=== PATIENT | female | born 1985 | race African-American/Black ===

== ENCOUNTER → 2021-08-04 07:11 | Outpatient (CLI) | payer OTHER, SELFPAY ==
--- NOTE | 2021-08-04 07:38 | DI.US.S_ITS ---
PROCEDURE: US OB <= 14 WEEKS FETUS INDICATIONS: INITIAL VIABILITY AND DATING OUTSIDE/PRIOR DATING DATA: Last menstrual period (LMP): 06/05/2022 LMP-based estimated date of delivery (JOSEPH): 03/12/2022. First dating scan (date and location): 08/04/2021. Estimated date of delivery (JOSEPH) from first dating scan: 03/07/2022. TECHNIQUE: Real-time scanning was performed of the fetus and maternal pelvic organs, with image documentation. Endovaginal scanning was also performed to better visualize the fetus and maternal ovaries. COMPARISON: None. FINDINGS: Embryo: 2.53 cm crown-rump length corresponds with a 9 week 2 day gestation. No perigestational bleed present. Heart rate: 168 beats per minute Maternal organs: Neither ovary visualized. No free fluid or adnexal mass. IMPRESSION: Single live intrauterine consistent with a 9 week 2 day gestation We strive to produce accurate, complete, and clear reports of imaging services. To assist us in improving patient care, this report was composed using standard report templates and voice recognition software. Therefore, it may contain abnormal punctuation, insertions and/or omissions. Occasional wrong-word or sound-alike substitutions may occur. Though we review the report and make efforts to correct it, we do recommend that the report be read carefully in proper context to recognize any text inaccuracies. Approved by: Myke Grant M.D. on 08/04/2021 at 16:25
== END ==
PROVIDERS: Referring Provider Obstetrics & Gynecology; Visit Provider Obstetrics & Gynecology
DX: Z36.87 Encounter for antenatal screening for uncertain dates (principal); Z3A.09 9 weeks gestation of pregnancy
CPT/HCPCS: 76801; 76817

== ENCOUNTER → 2021-08-11 08:37 | Outpatient (CLI) | payer OTHER, SELFPAY ==
[2021-08-11 12:55] LABS: Appearance Urine UA CLEAR; Bilirubin Urine UA NEGATIVE (NEGATIVE); Color Urine UA YELLOW; Glucose Urine UA NEGATIVE (Negative); Ketones Urine UA NEGATIVE (NEGATIVE); Leukocyte Esterase Urine UA NEGATIVE (NEGATIVE); Nitrite Urine UA NEGATIVE (Negative); Occult Blood Urine UA NEGATIVE (Negative); Protein Urine UA TRACE (Negative); Specific Gravity Urine UA 1.015 (1.000-1.035); Urobilinogen Urine UA 0.2 E.U./dL (0.2)
[2021-08-11 12:58] LABS: pH Urine UA 6.5 (4.5-8.0)
[2021-08-11 14:20] LABS: Urine N gonorrhoeae NOT DETECTED
[2021-08-11 14:21] LABS: Urine Chlamydia NOT DETECTED
== END ==
PROVIDERS: Visit Provider Obstetrics & Gynecology
DX: Z34.81 Encounter for supervision of other normal pregnancy, first trimester (principal); Z3A.09 9 weeks gestation of pregnancy
CPT/HCPCS: 81003; 87086; 87491; 87591

== ENCOUNTER 2021-08-13 20:51 | Emergency (ER) | payer OTHER, SELFPAY ==
[2021-08-13 21:29] VITALS: BP 119/53; PULSE 81; RESP 17; TEMP 36.7; O2SAT 100; BMI 27.4
--- NOTE | 2021-08-13 22:08 | DI.US.S_ITS ---
PROCEDURE: US OB <= 14 WEEKS FETUS INDICATIONS: 11 WEEKS, SPOTTING, OUTSIDE/PRIOR DATING DATA: Last menstrual period (LMP): 06/05/2022. LMP-based estimated date of delivery (JOSEPH): 03/12/2022. First dating scan (date and location): 08/04/2021. Estimated date of delivery (JOSEPH) from first dating scan: 03/07/2022. The calculations are made using the ultrasound JOSEPH of 03/07/2022. TECHNIQUE: Real-time scanning was performed of the fetus and maternal pelvic organs, with image documentation. Endovaginal scanning was also performed to better visualize the fetus and maternal ovaries. COMPARISON: [facility], , OB <= 14 WEEKS FETUS, 08/04/2021, 7:39. FINDINGS: Embryo: Living 1st trimester intrauterine . [place]-rump length measures 4.1 cm, 11 weeks 0 days Heart rate: 180 beats per minute Maternal organs: Right ovary not seen. Left ovary surgically absent. IMPRESSION: Living 1st trimester intrauterine . [place]-rump length and heartbeat. No sonographic evidence of complications. We strive to produce accurate, complete, and clear reports of imaging services. To assist us in improving patient care, this report was composed using standard report templates and voice recognition software. Therefore, it may contain abnormal punctuation, insertions and/or omissions. Occasional wrong-word or sound-alike substitutions may occur. Though we review the report and make efforts to correct it, we do recommend that the report be read carefully in proper context to recognize any text inaccuracies. Dictated by: Jamar Jarquin M.D. on 08/13/2021 at 23:10 Approved by: Jamar Jarquin M.D. on 08/13/2021 at 23:13
[2021-08-13 23:01] LABS: Add Manual Diff / Slide Review NO; Basophils Absolute Auto 0 /uL (0-100); Basophils Percent Auto 0.3 % (0-2); Eosinophils Absolute Auto 0 /uL (0-450); Eosinophils Percent Auto 0.9 % (2-4); Hematocrit 34.3 % (36-46); Hemoglobin 11.4 g/dL (12.0-16.0); Lymphocytes Absolute Auto 1800 /uL (1100-4500); Lymphocytes Percent Auto 34.8 % (25-40); Mean Corpuscular HGB Conc 33.3 % (30-36); Mean Corpuscular Hemoglobin 25.9 PG (26-34); Mean Corpuscular Volume 77.8 fL (80-100); Monocytes Absolute Auto 400 /uL (0-900); Monocytes Percent Auto 7.7 % (3-14); Neutrophils Absolute Auto 2900 /uL (1500-7000); Neutrophils Percent Auto 56.3 % (50-75); Platelet Count 235 X10^3/uL (150-400); Red Blood Cell Count 4.41 X10^6/uL (4.0-5.2); Red Cell Distribution Width 13.5 % (11.6-14.8); White Blood Cell Count 5.1 X10^3/uL (4.5-11.0)
[2021-08-13 23:07] LABS: Alanine Aminotransferase 11 IU/L (<35); Albumin 3.9 g/dL (3.5-5.0); Albumin Globulin Ratio 1.2 (1.0-2.8); Alkaline Phosphatase 29 U/L (38-126); Aspartate Aminotransferase 22 IU/L (14-36); BUN Creatinine Ratio 27.9 (6-22); Bilirubin Total 0.2 mg/dL (0.2-1.3); Blood Urea Nitrogen 12 mg/dL (7-17); Calcium 9.6 mg/dL (8.4-10.2); Carbon Dioxide 24 mmol/L (22-32); Chloride 106 mmol/L (98-107); Estimated Glomerular Filt Rate > 60.0 mL/min (>60); Globulin 3.3 g/dL (1.7-4.1); Glucose 97 mg/dL (70-100); HEMOLYSIS < 15 (0-50); Potassium 3.7 mmol/L (3.4-5.1); Sodium 133 mmol/L (137-145); Total Protein 7.2 g/dL (6.3-8.2)
[2021-08-13 23:24] LABS: HCG Quantitative /Beta subunit 152090 mIU/mL
[2021-08-13 23:31] VITALS: BP 104/57; PULSE 80; RESP 18; O2SAT 99
--- NOTE | 2021-08-14 00:37 | ED_ITS ---
HPI - General Chief complaint: Vaginal Bleeding Stated complaint: 10 WEEKS PREG./BLEEDING Time Seen by Provider: 08/14/21 00:28 Source: patient Mode of arrival: Ambulatory History of Present Illness HPI Narrative: Patient is a 36-year-old female who is presenting today at 11 weeks with some vaginal bleeding. She has previously had an ectopic and dermoid . Tonight she noticed bright red will wiping. No abdominal cramping. She has not really had any more bleeding. No pain no nausea or vomiting no f erick. Followed by Dr. Carlson. Related Data Home Medications Medication Instructions Recorded Confirmed doxylamine succinate 25 mg tablet 25 mg PO BEDTIME PRN 08/05/21 08/05/21 (Unisom (doxylamine)) prenat.vits,shahla,[id number]-kpar-[id number] 1 tab PO DAILY 08/05/21 08/05/21 pyridoxine (vitamin B6) 100 mg 50 mg PO DAILY 08/05/21 08/05/21 tablet Allergies Allergy/AdvReac Type Severity Reaction Status Date / Time iodine Allergy Mild Rash Verified 08/13/21 21:33 Latex, Natural Rubber Allergy Mild Rash Verified 08/13/21 21:33 Review of Systems Review of Systems Narrative: GENERAL: Denies chills, fatigue, malaise, fever, sweats, travel HEENT: Denies sinus pain, ear pain, sore throat, difficulty swallowing, neck pain RESPIRATORY: Denies dyspnea, cough, wheezing, hemoptysis, sputum. CARDIOVASCULAR: Denies chest pain, palpitations, orthopnea, edema GASTROINTESTINAL: Denies nausea, vomiting, abdominal pain, diarrhea, constipation, melena. 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 MUSCULOSKELETAL: Denies weakness, joint pain, or bony pain SKIN: No rash, no erythema, no pruritus NEUROLOGIC: Denies weakness, dizziness, headache, numbness, change in speech, confusion PSYCHIATRIC: No concerning psychosocial issues. 12 point review of systems is negative except for those stated above and HPI Exam Initial Vital Signs Initial Vital Signs: Vital Signs Temperature 98.1 F 08/13/21 21:29 Pulse Rate 81 08/13/21 21:29 Respiratory Rate 17 08/13/21 21:29 Blood Pressure 119/53 L 08/13/21 21:29 Pulse Oximetry 100 08/13/21 21:29 GENERAL: Alert well-appearing 36-year-old female in no acute] distress. HEENT: Head atraumatic,EOMI, pupils reactive, face symmetric, [moist] mucous membranes CARDIOVASCULAR: Regular rate and rhythm without murmurs, rubs or gallops. RESPIRATORY: Breath sounds equal bilaterally, no wheezes rales or rhonchi. ABDOMEN: Soft, nontender. Normoactive bowel sounds all 4 quadrants. No guarding or rebound. EXTREMITIES: Normal range of motion, no clubbing or edema. Neurovascularly intact NEUROLOGICAL: Alert and oriented x4. SKIN: Warm, dry, no laceration, no petechiae, no rashes or lesions. Course Orders Ordered: ED Orders 08/13/21 22:08 US OB <= 14 weeks fetus Stat 08/13/21 22:15 ABO RH Type Stat Complete Blood Count AUTO DIFF Stat Comprehensive Metabolic Panel Stat HCG Quantitative /Beta subunit Stat Vital Signs Vital signs: Vital Signs - 8 hr 08/13/21 21:29 08/13/21 23:31 08/14/21 00:52 Temperature 98.1 F Pulse Rate 81 80 71 Respiratory Rate 17 18 17 Blood Pressure 119/53 L 104/57 L 97/54 L Pulse Oximetry 100 99 99 MDM - OB/Uterine Contractions Lab Data Result diagrams: 08/13/21 22:15 08/13/21 22:15 Labs: Lab Results 08/13/21 08/13/21 08/13/21 Range/Units 22:15 22:15 22:15 WBC 5.1 (4.5-11.0) X10^3/uL RBC 4.41 (4.0-5.2) X10^6/uL Hgb 11.4 L (12.0-16.0) g/dL Hct 34.3 L (36-46) % MCV 77.8 L (80-100) fL MCH 25.9 L (26-34) PG MCHC 33.3 (30-36) % RDW 13.5 (11.6-14.8) % Plt Count 235 (150-400) X10^3/uL Neut % (Auto) 56.3 (50-75) % Lymph % (Auto) 34.8 (25-40) % [place] % (Auto) 7.7 (3-14) % Eos % (Auto) 0.9 L (2-4) % Baso % (Auto) 0.3 (0-2) % Neut # (Auto) 2900 (6282-4013) /uL Lymph # (Auto) 1800 (0556-8306) /uL [place] # (Auto) 400 (0-900) /uL Eos # (Auto) 0 (0-450) /uL Baso # (Auto) 0 (0-100) /uL Sodium 133 L (137-145) mmol/L Potassium 3.7 (3.4-5.1) mmol/L Chloride 106 (98-107) mmol/L Carbon Dioxide 24 (22-32) mmol/L BUN 12 (7-17) mg/dL Creatinine 0.43 L (0.52-1.04) mg/dL Estimated GFR > 60.0 (>60) mL/min BUN/Creatinine Ratio 27.9 H (6-22) Glucose 97 (70-100) mg/dL Calcium 9.6 (8.4-10.2) mg/dL Total Bilirubin 0.2 (0.2-1.3) mg/dL AST 22 (14-36) IU/L ALT 11 (<35) IU/L Alkaline Phosphatase 29 L (38-126) U/L Total Protein 7.2 (6.3-8.2) g/dL Albumin 3.9 (3.5-5.0) g/dL Globulin 3.3 (1.7-4.1) g/dL Albumin/Globulin Ratio 1.2 (1.0-2.8) HCG, Quant 912143 mIU/mL Blood Type A Positive Urine Dip Bedside Urine Glucose Negative Bedside Urine Bilirubin - Negative Bedside Urine Ketone - Negative Urine Specific [place] 1.025 Bedside Urine Occult Blood +++ Bedside Urine pH 6.0 Bedside Urine Protein - Negative Bedside Urine Urobilinogen - Negative Bedside Urine Nitrite - Negative Bedside Urine Leukocytes - Negative Esterase Imaging Data US - OB: Radiologist's Impression: PROCEDURE:? US OB <= 14 WEEKS FETUS ? INDICATIONS:? 11 WEEKS, SPOTTING, ? OUTSIDE/PRIOR DATING DATA:? Last menstrual period (LMP):? 06/05/2022.? LMP-based estimated date of delivery (JOSEPH):? 03/12/2022.? First dating scan (date and location):? 08/04/2021.? Estimated date of delivery (JOSEPH) from first dating scan:? 03/07/2022. The calculations are made using the ultrasound JOSEPH of 03/07/2022. ? TECHNIQUE:? Real-time scanning was performed of the fetus and maternal pelvic organs, with image documentation.? Endovaginal scanning was also performed to better visualize the fetus and maternal ovaries.? ? COMPARISON:? [facility], , OB <= 14 WEEKS FETUS, 08/04/2021, 7:39. ? FINDINGS:? ? Embryo:? Living 1st trimester intrauterine .? [place]-rump length measures 4.1 cm, 11 weeks 0 days Heart rate:? 180 beats per minute ? Maternal organs:? Right ovary not seen.? Left ovary surgically absent. ? ? IMPRESSION:? Living 1st trimester intrauterine .? [place]-rump length and heartbeat.? No sonographic evidence of complications. ? We strive to produce accurate, complete, and clear reports of imaging services. To assist us in improving patient care, this report was composed using standard report templates and voice recognition software. Therefore, it may contain abnormal punctuation, insertions and/or omissions. Occasional wrong-word or sound-alike substitutions may occur. Though we review the report and make efforts to correct it, we do recommend that the report be read carefully in proper context to recognize any text inaccuracies. ? Dictated by: Jamar Jarquin M.D. on 08/13/2021 at 23:10 ? ? Approved by: Jamar Jarquin M.D. on 08/13/2021 at 23:13 ? MDM Narrative Medical decision making narrative: Patient has had no further bleeding episodes ultrasound blood work were overall reassuring. No evidence bladder infection. She will follow up with OB as scheduled. Discharge Plan Departure Patient Disposition: Home Clinical Impression: Vaginal bleeding during Instructions: DI for Vaginal Bleeding During Activity Restrictions/Additional Instructions: *You have been diagnosed with vaginal bleeding with *What to do: At this time please follow up with OB. Pelvic rest, nothing in or out of vagina. Bleeding should stop can be normal but there is always risk of miscarriage *Continue to take medications as directed *Follow up with your primary care provider in 2-3 days or call [phone] *Return to ER if you should have increased bleeding, cramping bleeding more than 2 pads in 1 hour or any new, worsening or concerning symptoms Prescriptions: No Action prenat.vits,shahla,[id number] Tablet 1 tab PO DAILY 0RF Unisom (doxylamine) 25 mg tablet 25 mg PO BEDTIME PRN (Reason: Nausea) 0RF pyridoxine (vitamin B6) 100 mg tablet 50 mg PO DAILY 0RF Referrals: Miscellaneous,Doctor, [Primary Care Provider] - Britton Carlson MD [Physician] -
[2021-08-14 00:52] VITALS: BP 97/54; PULSE 71; RESP 17; O2SAT 99
== END 2021-08-14 00:54 | disposition home or self-care (01) ==
PROVIDERS: Emergency Provider Emergency Medicine
DX: O20.9 Hemorrhage in early pregnancy, unspecified (principal); Z87.59 Personal history of other complications of pregnancy, childbirth and the puerperium; Z3A.11 11 weeks gestation of pregnancy
CPT/HCPCS: 36415; 76801; 76817; 80053; 81003; 84702; 85025; 86900; 86901; 99284

== ENCOUNTER 2021-08-15 10:11 | Emergency (ER) | payer OTHER, SELFPAY ==
[2021-08-15 10:19] VITALS: BP 129/71; PULSE 91; RESP 18; TEMP 36.7; O2SAT 99
--- NOTE | 2021-08-15 10:22 | DI.US.S_ITS ---
PROCEDURE: US OB <= 14 WEEKS FETUS INDICATIONS: BLEEDING OUTSIDE/PRIOR DATING DATA: Last menstrual period (LMP): 06/05/2022. LMP-based estimated date of delivery (JOSEPH): 03/12/2022. First dating scan (date and location): 06/03/2022. Estimated date of delivery (JOSEPH) from first dating scan: 03/07/2022. TECHNIQUE: Real-time scanning was performed of the fetus and maternal pelvic organs, with image documentation. Endovaginal scanning was also performed to better visualize the fetus and maternal ovaries. COMPARISON: [facility], OB <= 14 WEEKS FETUS, 08/13/2021, 22:32. FINDINGS: Embryo: Single live intrauterine is identified with crown-rump length measuring 4.4 cm corresponding to 11 weeks 1 day. Gestational age from initial ultrasound is 10 weeks 6 days. Subchorionic hemorrhage was identified on prior exam and is slightly increased in size currently measuring 3.2 x 1.3 x 2.9 cm compared to 2.7 x 0.9 by 2.6 cm. Heart rate: 175 beats per minute. Maternal organs: Ovaries are not visualized. Previously noted uterine fibroid is seen in partial view. IMPRESSION: Single live intrauterine as above. Subchorionic hemorrhage slightly increased compared to prior exam. We strive to produce accurate, complete, and clear reports of imaging services. To assist us in improving patient care, this report was composed using standard report templates and voice recognition software. Therefore, it may contain abnormal punctuation, insertions and/or omissions. Occasional wrong-word or sound-alike substitutions may occur. Though we review the report and make efforts to correct it, we do recommend that the report be read carefully in proper context to recognize any text inaccuracies. Dictated by: Arlette Caba M.D. on 08/15/2021 at 12:18 Approved by: Arlette Caba M.D. on 08/15/2021 at 12:20
--- NOTE | 2021-08-15 11:27 | ED_ITS ---
HPI - Female Genitourinary General Chief complaint: Vaginal Bleeding Stated complaint: Light bleeding- 11 wks Time Seen by Provider: 08/15/21 10:25 Source: patient Mode of arrival: Ambulatory Limitations: no limitations History of Present Illness HPI Narrative: This is a 36-year-old female comes emergency department who was seen on the 13 of August. Patient is approximately 11 weeks by dates. She is AG 5 P 1 with prior dermoid cyst and not quite ectopic but a in the corner of her uterus which had to be removed. She has had a prior and then removal of the 1 through her scar and then laparoscopic for the dermoid. 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 She states she has a history of interstitial cystitis but has not been taking the medications for this. She returns today with some increased bleeding she needs initially with spotting, she had a little bit more a large clot and noticed her nausea which she has had throughout her had resolved today. She has not had fevers. No abdominal pain or cramping. She states still a light amount of blood occasionally bright red but often dark in coloration. She had significant flatus but has not had any diarrhea constipation. She is supposed to be seen on Tuesday with her OBGYN. She denies other surgeries or medical issues. Related Data Home Medications Medication Instructions Recorded Confirmed doxylamine succinate 25 mg tablet 25 mg PO BEDTIME PRN 08/05/21 08/05/21 (Unisom (doxylamine)) prenat.vits,shahla,[id number]-jras-[id number] 1 tab PO DAILY 08/05/21 08/05/21 pyridoxine (vitamin B6) 100 mg 50 mg PO DAILY 08/05/21 08/05/21 tablet Allergies Allergy/AdvReac Type Severity Reaction Status Date / Time iodine Allergy Mild Rash Verified 08/15/21 10:20 Latex, Natural Rubber Allergy Mild Rash Verified 08/15/21 10:20 Review of Systems Review of Systems ROS Unobtainable: All systems reviewed & are unremarkable except as noted in HPI and below Patient History Medical History Dermoid cyst Ectopic Interstitial cystitis Migraines Surgical History H/O laparoscopy History of Family History Father Hypertension Grandmother Breast cancer alcohol intake frequency: other Last Alcoholic Drink: none Substance Use Type: does not use Exam Narrative Exam Narrative: GENERAL: Alert and oriented x three, female in mild distress. HEENT: Head normocephalic, atraumatic, EOMI, pupils reactive, face symmetric, moist mucous membranes NECK: Supple, full range of motion CARDIOVASCULAR: Regular rate and rhythm without murmurs, rubs or gallops. RESPIRATORY: Breath sounds equal bilaterally, no wheezes rales or rhonchi. ABDOMEN: Soft, nontender. Gravid, appropriate for dates. Normoactive bowel sounds all 4 quadrants. No guarding or rebound, rigidity, no mass : No CVA tenderness EXTREMITIES: Normal range of motion, no clubbing or edema. Neurovascularly intact NEUROLOGICAL: Cranial nerves II through XII grossly intact. Moving all extremities SKIN: Warm, dry, no petechiae, no rashes or lesions. Initial Vital Signs Initial Vital Signs: Vital Signs Temperature 98.0 F 08/15/21 10:19 Pulse Rate 91 H 08/15/21 10:19 Respiratory Rate 18 08/15/21 10:19 Blood Pressure 129/71 08/15/21 10:19 Pulse Oximetry 99 08/15/21 10:19 Course Orders Ordered: ED Orders 08/15/21 10:22 US OB <= 14 weeks fetus Stat 08/15/21 12:20 Urine Microscopic Stat Vital Signs Vital signs: Vital Signs - 8 hr 08/15/21 10:19 08/15/21 12:44 Temperature 98.0 F Pulse Rate 91 H 81 Respiratory Rate 18 16 Blood Pressure 129/71 111/57 L Pulse Oximetry 99 100 MDM - Female Genitourinary Lab Data Labs: Lab Results 08/15/21 Range/Units 12:20 Urine RBC 5-10/hpf H (0-5/HPF) Urine WBC 0-1/hpf (0-5/HPF) Ur Squamous Epith Cells 5-10 /hpf H (0-5/HPF) Urine Bacteria Few (2-10) H (None) Ur Culture Indicated? Cult not indicated Urine Dip Bedside Urine Glucose Negative Bedside Urine Bilirubin - Negative Bedside Urine Ketone - Negative Urine Specific [place] 1.020 Bedside Urine Occult Blood +++ Bedside Urine pH 6.0 Bedside Urine Protein - Negative Bedside Urine Urobilinogen +/- 1mg Bedside Urine Nitrite - Negative Bedside Urine Leukocytes - Negative Esterase Imaging Data 08/13/21 ob us: Radiologist's Impression: [address] [address] Ultrasound Report Signed Patient: Guerita Piper MR#: [id number] : 1985 Acct:[id number] Age/Sex: 36 / F Date of Service: 08/13/21 Loc: ED Accession Number: [id number] ?? Procedure: US OB <= 14 weeks fetus Ordering Provider: Kaylyn Collins D.O. PROCEDURE:? US OB <= 14 WEEKS FETUS ? INDICATIONS:? 11 WEEKS, SPOTTING, ? OUTSIDE/PRIOR DATING DATA:? Last menstrual period (LMP):? 06/05/2022.? LMP-based estimated date of delivery (JOSEPH):? 03/12/2022.? First dating scan (date and location):? 08/04/2021.? Estimated date of delivery (JOSEPH) from first dating scan:? 03/07/2022. The calculations are made using the ultrasound JOSEPH of 03/07/2022. ? TECHNIQUE:? Real-time scanning was performed of the fetus and maternal pelvic organs, with image documentation.? Endovaginal scanning was also performed to better visualize the fetus and maternal ovaries.? ? COMPARISON:? [facility], , OB <= 14 WEEKS FETUS, 08/04/2021, 7:39. ? FINDINGS:? ? Embryo:? Living 1st trimester intrauterine .? [place]-rump length measures 4.1 cm, 11 weeks 0 days Heart rate:? 180 beats per minute ? Maternal organs:? Right ovary not seen.? Left ovary surgically absent. ? ? IMPRESSION:? Living 1st trimester intrauterine .? [place]-rump length and heartbeat.? No sonographic evidence of complications. ? We strive to produce accurate, complete, and clear reports of imaging services. To assist us in improving patient care, this report was composed using standard report templates and voice recognition software. Therefore, it may contain abnormal punctuation, insertions and/or omissions. Occasional wrong-word or sound-alike substitutions may occur. Though we review the report and make efforts to correct it, we do recommend that the report be read carefully in proper context to recognize any text inacc uracies. ? Dictated by: Jamar Jarquin M.D. on 08/13/2021 at 23:10 ? ? Approved by: Jamar Jarquin M.D. on 08/13/2021 at 23:13?? US - OB: Radiologist's Impression: [address] [address] Ultrasound Report Signed Patient: Guerita Piper MR#: [id number] : 1985 Acct:[id number] Age/Sex: 36 / F Date of Service: 08/15/21 Loc: ED Accession Number: [id number] ?? Procedure: US OB <= 14 weeks fetus Ordering Provider: Noemi Escalera D.O. PROCEDURE:? US OB <= 14 WEEKS FETUS ? INDICATIONS:? BLEEDING ? OUTSIDE/PRIOR DATING DATA:? Last menstrual period (LMP):? 06/05/2022.? LMP-based estimated date of delivery (JOSEPH):? 03/12/2022.? First dating scan (date and location):? 06/03/2022.? Estimated date of delivery (JOSEPH) from first dating scan:? 03/07/2022. ? TECHNIQUE:? Real-time scanning was performed of the fetus and maternal pelvic organs, with image documentation.? Endovaginal scanning was also performed to better visualize the fetus and maternal ovaries.? ? COMPARISON:? [facility], OB <= 14 WEEKS FETUS, 08/13/2021, 22:32. ? FINDINGS:? ? Embryo:? Single live intrauterine is identified with crown-rump length measuring 4.4 cm corresponding to 11 weeks 1 day.? Gestational age from initial ultrasound is 10 weeks 6 days.? Subchorionic hemorrhage was identified on prior exam and is slightly increased in size currently measuring 3.2 x 1.3 x 2.9 cm compared to 2.7 x 0.9 by 2.6 cm.? ? Heart rate:? 175 beats per minute. ? Maternal organs:? Ovaries are not visualized. ? Previously noted uterine fibroid is seen in partial view. ? ? IMPRESSION:? ? Single live intrauterine as above. ? Subchorionic hemorrhage slightly increased compared to prior exam. ? We strive to produce accurate, complete, and clear reports of imaging services. To assist us in improving patient care, this report was composed using standard report templates and voice recognition software. Therefore, it may contain abnormal punctuation, insertions and/or omissions. Occasional wrong-word or sound-alike substitutions may occur. Though we review the report and make efforts to correct it, we do recommend that the report be read carefully in proper context to recognize any text inaccuracies. ? Dictated by: Arlette Caba M.D. on 08/15/2021 at 12:18 ? ? Approved by: Arlette Caba M.D. on 08/15/2021 at 12:20?? MDM Narrative Medical decision making narrative: This is a 36-year-old who comes in with vaginal bleeding during she is a with 2 prior miscarriages and 2 prior pregnancies that word dermoid cyst as well as a also ectopic with the was in the corner of her uterus. Patient has had some vaginal bleeding but no pain. She had ultrasound on the 13 of August. Showing a living 1st trimester any urine measuring 11 weeks and 0 days with a heart rate of 180 beats per minute. No other significant changes were appreciated that time. Patient is A+ not requiring RhoGAM. Labs were not repeated today but point of care urine was to evaluate for infection. A subchorionic hemorrhage slightly increased in size from prior 2 days ago is noted on ultrasound. Patient updated and expressed understanding she has follow up this Tuesday with electrolysis investigator. Discharge Plan Departure Patient Disposition: Home Clinical Impression: Vaginal bleeding during , Advanced maternal age during Instructions: DI for Vaginal Bleeding During Activity Restrictions/Additional Instructions: Follow-up Tuesday with your OBGYN. A subchorionic hemorrhage is noted on your ultrasound it was seen on your last ultrasound and has increased slightly in size. Heart rate and size corresponds with your recent ultrasound as well. Continue with pelvic rest at this time until cleared by your physician. Please return for fevers, new or worsening abdominal pain, lightheadedness or passing out new chest pain or shortness of breath, going through more than 1 pad an hour or other new or concerning symptoms. Prescriptions: No Action prenat.vits,shahla,[id number] Tablet 1 tab PO DAILY 0RF Unisom (doxylamine) 25 mg tablet 25 mg PO BEDTIME PRN (Reason: Nausea) 0RF pyridoxine (vitamin B6) 100 mg tablet 50 mg PO DAILY 0RF Referrals: Britton Carlson MD [Primary Care Provider] -
[2021-08-15 12:44] VITALS: BP 111/57; PULSE 81; RESP 16; O2SAT 100
[2021-08-15 13:27] LABS: Bacteria Urine Few (2-10); Culture Indicated Urine Cult Not Indicated; RBC Urine 5-10/HPF (0-5/HPF); Squamous Epithelial Cell Urine 5-10 /HPF (0-5/HPF); WBC Urine 0-1/HPF (0-5/HPF)
== END 2021-08-15 12:45 | disposition home or self-care (01) ==
PROVIDERS: Emergency Provider Emergency Medicine; PCP Obstetrics & Gynecology
DX: O20.9 Hemorrhage in early pregnancy, unspecified (principal); O09.521 Supervision of elderly multigravida, first trimester; Z3A.11 11 weeks gestation of pregnancy
CPT/HCPCS: 76801; 81003; 81015; 99283

== ENCOUNTER → 2021-08-18 08:04 | Outpatient (CLI) | payer OTHER, SELFPAY ==
[2021-08-18 09:09] LABS: Specimen Label Y
[2021-08-18 10:45] LABS: Add Manual Diff / Slide Review NO; Basophils Absolute Auto 0 /uL (0-100); Basophils Percent Auto 0.2 % (0-2); Eosinophils Absolute Auto 0 /uL (0-450); Eosinophils Percent Auto 0.6 % (2-4); Hemoglobin 12.2 g/dL (12.0-16.0); Lymphocytes Absolute Auto 1200 /uL (1100-4500); Lymphocytes Percent Auto 23.1 % (25-40); Mean Corpuscular HGB Conc 33.9 % (30-36); Mean Corpuscular Hemoglobin 26.3 PG (26-34); Mean Corpuscular Volume 77.6 fL (80-100); Monocytes Absolute Auto 300 /uL (0-900); Monocytes Percent Auto 6.7 % (3-14); Neutrophils Absolute Auto 3400 /uL (1500-7000); Neutrophils Percent Auto 69.4 % (50-75); Platelet Count 259 X10^3/uL (150-400); Red Blood Cell Count 4.64 X10^6/uL (4.0-5.2)
[2021-08-18 12:14] LABS: Rubella Antibody IgG 24.1 IU/mL (>15)
[2021-08-18 12:15] LABS: Hepatitis B Surface Antigen NEGATIVE s/c (NEGATIVE)
[2021-08-18 12:57] LABS: HIV 1 & 2 Ab/Ag 4th Gen Combo NEGATIVE (NEGATIVE); Hep C Virus Ab w/Reflex Quant NEGATIVE s/c (NEGATIVE)
[2021-08-19 08:02] LABS: RPR Screen Non Reactive (Non Reactive)
[2021-08-19 08:09] LABS: Varicella IgG Antibody 643 index (Immune >165)
== END ==
PROVIDERS: Referring Provider Obstetrics & Gynecology; Visit Provider Obstetrics & Gynecology
DX: O26.21 Pregnancy care for patient with recurrent pregnancy loss, first trimester (principal)
CPT/HCPCS: 36415; 80055; 86787; 86803; 86850; 86900; 86901; 87389

== ENCOUNTER → 2021-10-26 07:39 | Outpatient (CLI) | payer OTHER, SELFPAY ==
--- NOTE | 2021-10-26 07:40 | DI.US.S_ITS ---
PROCEDURE: US OB >= 14 WEEKS FETUS INDICATIONS: ANATOMY SCAN OUTSIDE/PRIOR DATING DATA: Last menstrual period (LMP): 06/05/2021 LMP-based estimated date of delivery (JOSEPH): 03/12/2022 First dating scan (date and location): 08/04/2021 Estimated date of delivery (JOSEPH) from first dating scan: 03/07/2022 The calculations are made using the ultrasound JOSEPH of 03/07/2022 TECHNIQUE: Real-time scanning was performed of the fetus, with image documentation and biometric measurements. Endovaginal scanning: Not performed. COMPARISON: [facility] Ultrasound, US, US OB > 14 WEEKS FOLLOW UP, 09/11/2021, 9:45. FINDINGS: General: A single living intrauterine gestation is present. Presentation: Variable Placenta: Placental position is anterior fundal, without previa. Amniotic fluid index: 15.1 cm, normal range is 5-24 cm. Single deepest vertical pocket is 4.7 cm. heart rate: 150 beats per minute. Maternal cervical canal: 5.0 cm long. Normal lower limit is 2.5 cm. Status post left oophorectomy. 5.9 x 5.5 x 4.1 cm fibroid seen at the lower uterine segment anteriorly. biometrics: Biparietal diameter: 5.2 cm, 21 weeks 5 days Head circumference: 19.4 cm, 21 weeks 5 days Abdominal circumference: 18.2 cm, 23 weeks 1 day Femur length: 3.8 cm, 22 weeks 2 days Clinically estimated gestational age: 21 weeks 1 day Composite gestational age from present scan: 22 weeks 2 days Estimated weight and percentile: 517 grams, 98th percentile Anatomic survey: Neuro: Ventricles are non-dilated at less than 10 mm. Cisterna magna is normal at 3-11 mm. Cerebellum is normal in size and morphology. Nuchal skin fold: Normal at less than 6 mm between 14-21 weeks gestational age. Face: Nose and lips, facial profile are normal. Spine: No evidence for spina bifida. Heart: 4-chambered heart is present, with normal ventricular outflow tracts. Diaphragm: Diaphragm is intact. Stomach: Left-sided stomach is present. Kidneys: No hydronephrosis. Normal is less than 5 mm in 2nd trimester, less than 7 mm in 3rd trimester. Cord: 3-vessel cord has orthotopic insertion. Bladder: Normal in size. Extremities: All 4 extremities identified. IMPRESSION: 1. Single live intrauterine with interval growth. 2. Estimated weight is 517 grams, 98th percentile for gestational age. Recommend attention on follow-up exams 3. anatomic survey is within normal limits. We strive to produce accurate, complete, and clear reports of imaging services. To assist us in improving patient care, this report was composed using standard report templates and voice recognition software. Therefore, it may contain abnormal punctuation, insertions and/or omissions. Occasional wrong-word or sound-alike substitutions may occur. Though we review the report and make efforts to correct it, we do recommend that the report be read carefully in proper context to recognize any text inaccuracies. Dictated by: Nicholas Oliva M.D. on 10/26/2021 at 14:57 Approved by: Nicholas Oliva M.D. on 10/26/2021 at 15:06
== END ==
PROVIDERS: Referring Provider Obstetrics & Gynecology; Visit Provider Obstetrics & Gynecology
DX: Z36.89 Encounter for other specified antenatal screening (principal); Z3A.22 22 weeks gestation of pregnancy
CPT/HCPCS: 76811

== ENCOUNTER → 2021-12-10 10:19 | Outpatient (CLI) | payer OTHER, SELFPAY ==
[2021-12-10 12:46] LABS: Hematocrit 31.5 % (36-46); Hemoglobin 10.5 g/dL (12.0-16.0)
[2021-12-10 13:33] LABS: GTT (PREG) 1 Hour PP 50gm Dose 107 mg/dL (76-139)
== END ==
PROVIDERS: Referring Provider Obstetrics & Gynecology; Visit Provider Obstetrics & Gynecology
DX: Z34.82 Encounter for supervision of other normal pregnancy, second trimester (principal); Z3A.26 26 weeks gestation of pregnancy
CPT/HCPCS: 36415; 82950; 85014; 85018

== ENCOUNTER 2021-12-18 06:36 | Observation (INO) | payer OTHER, SELFPAY ==
[2021-12-18 08:27] LABS: Appearance Urine UA CLEAR; Bilirubin Urine UA NEGATIVE (NEGATIVE); Color Urine UA YELLOW; Glucose Urine UA NEGATIVE (Negative); Ketones Urine UA NEGATIVE (NEGATIVE); Leukocyte Esterase Urine UA 1+ (NEGATIVE); Nitrite Urine UA NEGATIVE (Negative); Occult Blood Urine UA NEGATIVE (Negative); Protein Urine UA NEGATIVE (Negative); Urobilinogen Urine UA 0.2 E.U./dL (0.2)
[2021-12-18 08:28] LABS: pH Urine UA 6.5 (4.5-8.0)
[2021-12-18 08:33] LABS: Bacteria Urine Many (>30); Culture Indicated Urine Cult Not Indicated; RBC Urine None Seen (0-5/HPF); Squamous Epithelial Cell Urine >30 /HPF (0-5/HPF); WBC Urine 1-5/HPF (0-5/HPF)
[2021-12-18] MEDS: LACTATED RINGERS 1,000 ML 1000 ML IV (08:40)
--- NOTE | 2021-12-18 08:58 | PM.OBTRLD ---
Visit Information Visit Information Date of evaluation: 12/18/21 Primary OB Provider: Britton Carlson On-call OB Provider: Gaby Martínez Reason for Evaluation: Yes pre-term labor and Yes other Comments/Additional reasons for admission: 36 yo presents due to feeling frequent contractions. She has been feeling some contractions over the past 3 days, which became more uncomfortable overnight, awakening or at 4:00 a.m.. She slept rest sleeve with the contractions. Denies leakage of fluid or vaginal bleeding. Feeling good movement. No urinary symptoms. No recent illness. has been complicated by episodes of lightheadedness with low blood pressures. She was taken off work for some time. Doing better with decreased activity. Of significance on her anatomy ultrasound there was a 5 x 5 cm anterior lower uterine segment fibroid seen. Ob history significant for 2009 in history of right cornual ectopic removed in 2019. 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 occupational exposures/hazards: No seatbelt use: always water heater temp set < 120 deg: Yes working smoke detector in home: Yes fire extinguisher in home: Yes carbon monox detector in home: Yes firearms in home: No do you feel safe at home: Yes Smoking Status: Former smoker second hand exposure: No alcohol intake: former substance use type: does not use and marijuana (medical card) during the past year weight has: remained stable well-balanced diet: daily or most days daily servings fruits/ve-4 caffeine: Yes (200mg) Type(s) of exercise: walking and regular exercise Objective Labs Result Diagrams: 12/18/21 08:50 Labs: Laboratory Results - last 24 hr 12/18/21 08:00 Urine Color Yellow Urine Appearance Clear Urine pH 6.5 Ur Specific [place] 1.010 Urine Protein Negative Urine Glucose (UA) Negative Urine Ketones Negative Urine Occult Blood Negative Urine Nitrate Negative Urine Bilirubin Negative Urine Urobilinogen 0.2 Ur Leukocyte Esterase 1+ H Urine RBC None seen Urine WBC 1-5/hpf Ur Squamous Epith Cells >30 /hpf H Urine Bacteria Many (>30) H Ur Culture Indicated? Cult not indicated Evaluation Evaluation Baseline heart rate: 140 Variability: Moderate (11-25) monitor accelerations: Present Monitor Decelerations: Absent Contraction Frequency (minutes): 4 Uterine Contraction Intensity: Mild Category of Tracing: Reactive Status: Category l Cervical dilation (cm): 0 Cervical effacement (%): 0 Comments: On toco contractions persisting at every 3-5 minutes after 1 L IV fluids. Urinalysis clean-catch initially showed 1+ leukocytes, many bacteria but many squamous epithelial cells indicating contamination. On exam she has a heavy normal discharge of . After hydration a repeat urinalysis performed with having patient try to do a good clean-catch again and urinalysis negative. On exam normal discharge noted on the heavier side. No pooling of amniotic fluid. Cervix appeared closed. fibronectin collected which was negative. On digital exam cervix closed and long, but mildly soft. CBC showed normal WBC and known mild anemia. With persistent frequent contractions with known fibroid as risk factor as well, decision made to treat at least with some oral tocolytics. Patient given 50 mg indomethacin p.o.. She had some to increase in intensity but still fairly frequent contractions. Repeat dose of 25 mg given 4 hours later. Patient's contractions continued decreased intensity space and then over last hour have been rare. She slept for few hours after the 2nd dose, no longer feeling contractions. She reports still not feeling any contractions. Repeat exam deferred at this time with contractions resolving. She is discharged home to continue indomethacin every 6 hours for 2 more doses and then stop. She was advised to call on TuesdayDecember 22 to be seen in the office that week. Currently keep December 29 appointment is scheduled. Gave her discharge precautions and contact phone number to call if she develops return frequent contractions with the weekend. Diagnosis, Plan/Disposition Final Diagnosis (1) contractions: Status: Acute Plan/Disposition Plan: With persistent frequent contractions with known fibroids as risk factor as well, decision made to treat at least initially with some oral tocolytics. Patient given 50 mg indomethacin p... She had some to increase in intensity but still fairly frequent contractions after thei initial dose. Repeat dose of Indomethacin 25 mg given 4 hours later. Patient's contractions continued decreased intensity, space and then over last hour have been only a rare contraction. She slept for few hours after the 2nd dose, no longer feeling contractions. She reports still not feeling any contractions. Repeat exam deferred at this time with contractions resolving. She is discharged home to continue indomethacin every 6 hours for 2 more doses and then stop. She was advised to call on TuesdayDecember 22 to be seen in the office that week. Also currently keep December 29 appointment is scheduled. Gave her discharge precautions and contact phone number to call if she develops return frequent contractions with the weekend. OB Disposition: home
[2021-12-18 09:32] LABS: Fetal Fibronectin Negative
[2021-12-18] MEDS: LACTATED RINGERS 1,000 ML 250 ML IV (09:45)
[2021-12-18 10:00] LABS: Add Manual Diff / Slide Review NO; Basophils Absolute Auto 0 /uL (0-100); Basophils Percent Auto 0.2 % (0-2); Eosinophils Absolute Auto 0 /uL (0-450); Eosinophils Percent Auto 0.5 % (2-4); Hematocrit 33.8 % (36-46); Hemoglobin 11.3 g/dL (12.0-16.0); Lymphocytes Absolute Auto 1300 /uL (1100-4500); Lymphocytes Percent Auto 15.4 % (25-40); Mean Corpuscular HGB Conc 33.5 % (30-36); Mean Corpuscular Hemoglobin 25.6 PG (26-34); Mean Corpuscular Volume 76.5 fL (80-100); Monocytes Absolute Auto 600 /uL (0-900); Monocytes Percent Auto 6.6 % (3-14); Neutrophils Absolute Auto 6800 /uL (1500-7000); Neutrophils Percent Auto 77.3 % (50-75); Platelet Count 252 X10^3/uL (150-400); Red Blood Cell Count 4.42 X10^6/uL (4.0-5.2); Red Cell Distribution Width 15.1 % (11.6-14.8); White Blood Cell Count 8.7 X10^3/uL (4.5-11.0)
[2021-12-18 10:13] LABS: Appearance Urine UA CLEAR; Bilirubin Urine UA NEGATIVE (NEGATIVE); Color Urine UA YELLOW; Glucose Urine UA NEGATIVE (Negative); Ketones Urine UA NEGATIVE (NEGATIVE); Leukocyte Esterase Urine UA NEGATIVE (NEGATIVE); Nitrite Urine UA NEGATIVE (Negative); Occult Blood Urine UA NEGATIVE (Negative); Protein Urine UA NEGATIVE (Negative); Specific Gravity Urine UA <=1.005 (1.000-1.035); Urobilinogen Urine UA 0.2 E.U./dL (0.2)
[2021-12-18] MEDS: INDOMETHACIN 25 MG CAPSULE 50 MG PO (10:14)
[2021-12-18 10:20] LABS: Bacteria Urine None Seen; Culture Indicated Urine Cult Not Indicated; RBC Urine None Seen (0-5/HPF); Urine Comments Microscopic Normal; WBC Urine None Seen (0-5/HPF)
[2021-12-18] MEDS: INDOMETHACIN 25 MG CAPSULE PO (14:26)
== END 2021-12-18 17:36 | disposition home or self-care (01) ==
PROVIDERS: Obstetrics & Gynecology; Admitting Provider Obstetrics & Gynecology; Referring Provider Obstetrics & Gynecology; Visit Provider Obstetrics & Gynecology
DX: O47.03 False labor before 37 completed weeks of gestation, third trimester (principal); Z3A.28 28 weeks gestation of pregnancy
CPT/HCPCS: 59025; 59050; 81001; 82731; 85025; 96360; G0378; G0379

== ENCOUNTER 2021-12-19 21:26 | Observation (INO) | payer OTHER, SELFPAY ==
--- NOTE | 2021-12-19 22:40 | P.TNLD_ITS ---
Visit Information Visit Information Date of evaluation: 12/19/21 Primary OB Provider: Britton Carlson On-call OB Provider: Gaby Martínez Reason for Evaluation: Yes pre-term labor Comments/Additional reasons for admission: 36-year-old returns for uterine contractions. Seen here yesterday and she was having contractions every 3-5 minutes. Contractions stopped with indomethacin and she was discharged on this to continue to doses. She received 50 mg loading dose and subsequently 25 mg every 6 hours for 3 doses. Her last dose was 2a.m. this morning. She reports the contractions stayed away until about 3:00 p.m.today when she had onset of some contractions. 3 hours later contractions became every 5-7 minutes, persisted for 3 hours and she called and was brought in. Patient has an ultrasound in Radiology scheduled in 2 days to check her LIZANDRO, reports that measured the higher side in the clinic. Yesterday her urinalysis was negative. She was IV hydrated yesterday without success at slowing the contractions, and we need to proceed to the indomethacin. She denies any leakage of fluid or vaginal bleeding. She is feeling good movement. 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 History of an LSO for a dermoid cyst in 2009. 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 occupational exposures/hazards: No seatbelt use: always water heater temp set < 120 deg: Yes working smoke detector in home: Yes fire extinguisher in home: Yes carbon monox detector in home: Yes firearms in home: No do you feel safe at home: Yes Smoking Status: Never smoker second hand exposure: No alcohol intake: former substance use type: does not use and marijuana (medical card) during the past year weight has: remained stable well-balanced diet: daily or most days daily servings fruits/ve-4 caffeine: Yes (200mg) Type(s) of exercise: walking and regular exercise Evaluation Evaluation Baseline heart rate: 135 Variability: Moderate (11-25) monitor accelerations: Present Monitor Decelerations: Absent Contraction Frequency (minutes): 5 Uterine Contraction Intensity: Mild Category of Tracing: Reactive Status: Category l Cervical dilation (cm): 0 Cervical effacement (%): 0 station: -4 Comments: cervix mid position. somewhat full BROCK on exam FFN negative ysterday 12/18 at 9am Bedside US by me: vertex,good FM, LIZANDRO 23 Diagnosis, Plan/Disposition Plan/Disposition Plan: Will repeat treatment with indomethacin as this did work for yesterday. GBS screen collected. UA not repeated as negative yesterday. FFN negative yesterday Cervical length by ultrasound ordered after 2nd dose of indomethacin in a.m.. Cervix 3.4 cm. LIZANDRO 21, EFW 99 percentile Steroids given since she was still walter frequently in the middle of her 2nd dose of Indocin and with this being the 2nd presentation to birthing center within 24 hours and her risk factors. See observation H and P. Patient's contractions decreased in intensity gradually after the 1st and 2nd dose of Indocin. Contractions then spaced and became only occasional at end of her 2nd dose. She was given a 3rd dose and discharge home with now not feeling any contractions and only rare 1 noted on the monitor. Patient observed overnight and discharged after 12 hours OB Disposition: home
[2021-12-19] MEDS: INDOMETHACIN 25 MG CAPSULE 50 MG PO (22:52)
[2021-12-20 01:40] VITALS: BP 106/58
[2021-12-20] MEDS: INDOMETHACIN 25 MG CAPSULE PO ×2 (02:55→09:48)
[2021-12-20] MEDS: BETAMETHASONE 30 MG/5 ML MDV 12 MG IM (07:50)
--- NOTE | 2021-12-20 08:49 | DI.US.S_ITS ---
PROCEDURE: US OB LIMITED INDICATIONS: PTL OUTSIDE/PRIOR DATING DATA: Last menstrual period (LMP): 06/05/2021. LMP-based estimated date of delivery (JOSEPH): 03/12/2022 First dating scan (date and location): 08/04/2021. Estimated date of delivery (JOSEPH) from first dating scan: 03/07/2022. The calculations are made using the ultrasound JOSEPH of 03/07/2022. TECHNIQUE: Real-time scanning was performed of the fetus, with image documentation. COMPARISON: None. FINDINGS: A single living intrauterine gestation is present. Presentation: Vertex. Placenta: Placental position is fundal, without previa. Amniotic fluid index: 21.8 cm, normal range is 5-24 cm. Single deepest vertical pocket is 7.2 cm. heart rate: 145 beats per minute. Maternal cervical canal: 3.5 cm long. Normal lower limit is 2.5 cm. Estimated gestational age from initial scan: 29 weeks 0 days. Composite just a L0 age from today's scan: 31 weeks 1 day. Estimated weight 1792 grams. 99th percentile. IMPRESSION: 1. Intrauterine gestation with an estimated gestational age of 29 weeks 0 days by initial scan. 2. Estimated weight is 1792 grams, 99th percentile. Large for gestational age. Dictated by: Yuan Caldwell M.D. on 12/20/2021 at 9:53 Approved by: Yuan Caldwell M.D. on 12/20/2021 at 9:57
--- NOTE | 2021-12-20 11:41 | P.HPOB_ITS ---
OB HPI Date/Time Date of admission: 12/20/21 Date Patient Seen: 12/20/21 Time Patient Seen: 01:00 History of Present Condition Chief complaint: contractions : 5 Para: 1 Estimated Gestational Age (weeks): 29wk0d Narrative: Guerita Piper is a 36 year old female at 29 weeks who returns for uterine contractions. Seen here yesterday and she was having contractions every 3-5 minutes. Contractions stopped with indomethacin and she was discharged on this to continue for 2 doses. She received 50 mg loading dose and subsequently 25 mg every 6 hours for 3 doses. Her last dose was 2a.m. this morning. She reports the contractions stayed away until about 3:00 p.m.today when she had onset of some contractions. 3 hours later contractions became every 5-7 minutes, persisted for 3 hours and she called and was brought in. Yesterday her urinalysis was negative. She was IV hydrated yesterday without success at slowing the contractions, and we need to proceed to the indomethacin. She denies any leakage of fluid or vaginal bleeding. She is feeling good movement. 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 History of an LSO for a dermoid cyst in 2009. Evaluation Evaluation Baseline heart rate: 135 Variability: Moderate (11-25) monitor accelerations: Present Monitor Decelerations: Absent Contraction Frequency (minutes): 5 Uterine Contraction Intensity: Mild Category of Tracing: Reactive Status: Category l Dilation: Closed Effacement: 0-30% station: -4 Position of cervix: posterior Consistency: medium Herring score: 1 Comments: On cervical exam somewhat full lower uterine segment Negative FFN on 12/18 at 9:00 a.m. Bedside ultrasound by Radiology cervical length 3.4 cm, fetus vertex. 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 occupational exposures/hazards: No seatbelt use: always water heater temp set < 120 deg: Yes working smoke detector in home: Yes fire extinguisher in home: Yes carbon monox detector in home: Yes firearms in home: No do you feel safe at home: Yes Smoking Status: Never smoker second hand exposure: No alcohol intake: former substance use type: does not use and marijuana (medical card) during the past year weight has: remained stable well-balanced diet: daily or most days daily servings fruits/ve-4 caffeine: Yes (200mg) Type(s) of exercise: walking and regular exercise Meds Home Medications and Allergies Home Medications Medication Instructions Recorded Confirmed Type doxylamine succinate 25 mg tablet 25 mg PO BEDTIME PRN Nausea 08/05/21 10/14/21 History (Unisom (doxylamine)) prenat.vits,shahla,usl-cpmk-bskag 1 tab PO DAILY 08/05/21 10/14/21 History pyridoxine (vitamin B6) 100 mg 50 mg PO DAILY 08/05/21 10/14/21 History tablet indomethacin 25 mg capsule 25 mg PO Q6H #2 caps 12/18/21 Rx indomethacin 25 mg capsule 25 mg PO Q6H #4 caps 12/20/21 Rx Allergies Allergy/AdvReac Type Severity Reaction Status Date / Time iodine Allergy Mild Rash Verified 10/14/21 09:50 Latex, Natural Rubber Allergy Mild Rash Verified 10/14/21 09:50 OB Exam Narrative Exam Narrative: General: Well-appearing female. With some contraction she appears very uncomfortable Abdomen, nontender. Cervix: See listed exam Assessment and Plan Assessment and Plan Assessment and Plan narrative: Will repeat treatment with indomethacin as this med did work for yesterday and she has had the near syncopal episodes this with lower blood pressure at the time when at work. Thus will avoid nifedipine at this time.. GBS screen collected. UA not repeated as negative yesterday. FFN negative yesterday. Steroids given since she was still walter frequently in the middle of her 2nd dose of Indocin and with this being the 2nd presentation to birthing center within 24 hours and her risk factors. She received indomethacin 50 mg p.o. loading dose followed by 2 additional doses. Guerita's contractions decreased in intensity gradually after the 1st and 2nd dose of Indocin. Contractions then spaced and became only occasional toward end of her 2nd dose. She was given a 3rd dose and after 2 hours contractions remained rare. Ultrasound by Radiology obtained in the a.m. for cervical length which was normal at 3.4 cm. She was discharged home to continue the indomethacin 25 mg every 6 hours for 24 hours (4 doses). She will return for 2nd dose of betamethasone 12 mg IM tomorrow a.m. Time Spent with Patient Total time spent with greater than 50% in coordination of care (as documented) at patient's floor/unit and/or counseling patient:: Greater than 35 minutes
--- NOTE | 2021-12-20 12:01 | P.DS_ITS ---
Discharge Providers Provider Date of admission: 12/19/21 21:26 Discharge Date: 12/20/21 Primary care physician: Dr acevedo Consults: none Discharge provider: Gaby Martínez MD Summary Hospital Course Date Patient Seen: 12/20/21 Time Patient Seen: 11:15 Diagnoses: contractions at 29 weeks without cervical change, not delivered Fibroid uterus Borderline elevated LIZANDRO Hospital Course: See H& P. 36-year-old female with history of a for distress in 2008, presented at 29 weeks with a recurrent episode of contractions. Ob history also significant for a left cornual ectopic in 2019. 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 On recent office ultrasound suspicion for possible increased LIZANDRO with formal radiology ultrasound pending. GBS screen collected. UA not repeated as negative yesterday. FFN negative yesterday. Treated with indomethacin as this med did work for yesterday and she has had the near syncopal episodes this with lower blood pressure at the time. Thus will avoid nifedipine at this time.. Steroids, Betamethasone, given since she was still walter frequently in the middle of her 2nd dose of Indocin and with this being the 2nd presentation to birthing center within 24 hours and her risk factors. She received indomethacin 50 mg p.o. loading dose followed by 2 additional doses. Guerita's contractions decreased in intensity gradually after the 1st and 2nd dose of Indocin. Contractions then spaced and became only occasional toward end of her 2nd dose. She was given a 3rd dose and after 2 hours contractions remained rare. Ultrasound by Radiology. for cervical length was normal at 3.4 cm. LIZANDRO 21.8, EFW 99%. Baby vertex. Cervical length being normal on ultrasound and contractions now rare, she was discharged. She was discharged home to continue the indomethacin 25 mg every 6 hours for 24 hours (4 doses). She will return for 2nd dose of betamethasone 12 mg IM tomorrow a.m. Advise modified bed rest. Keep appointment with Dr. Carlson, her primary OB this week. Status at Discharge Cognitive/behavioral status at discharge: oriented Functional status at discharge: independent ambulation Overall status at discharge: patient is back to baseline Time Spent with Patient Time attestation: Total time spent providing and/or coordinating discharge services: Time spent: Less than 30 minutes Exam Vital Signs (past 8 hours): Afebrile with temp 97.8? F. BP 106/58, pulse 98 Narrative Exam Narrative: General: Well-appearing female. Appears comfortable. No acute distress. Abdomen gravid, nontender. Discharge Plan Discharge Plan Patient Disposition: Home Discharge orders & Medications Prescriptions: New indomethacin 25 mg Capsule 25 mg PO Q6H Qty: 4 0RF Continued prenat.vits,shahla,kte-bzeg-sxyng Tablet 1 tab PO DAILY Unisom (doxylamine) 25 mg tablet 25 mg PO BEDTIME PRN (Reason: Nausea) pyridoxine (vitamin B6) 100 mg tablet 50 mg PO DAILY indomethacin 25 mg capsule 25 mg PO Q6H Qty: 2 0RF Rx Instructions: administer with food or milk. Next dose at 8pm Follow up/Referrals: Doctor Acevedo MD [Primary Care Provider] - Discharge Data Primary Care Provider: Doctor Odin Attending Provider: Gaby Martínez
[2021-12-20 18:45] LABS: Strep Grp B PCR NEG for Grp B Strep
== END 2021-12-20 11:05 | disposition home or self-care (01) ==
PROVIDERS: Admitting Provider Obstetrics & Gynecology; Referring Provider Obstetrics & Gynecology; Visit Provider Obstetrics & Gynecology
DX: O47.03 False labor before 37 completed weeks of gestation, third trimester (principal); Z3A.29 29 weeks gestation of pregnancy; O34.13 Maternal care for benign tumor of corpus uteri, third trimester; Z20.822 Contact with and (suspected) exposure to COVID-19
CPT/HCPCS: 59025; 59050; 76815; 76817; 87653; 96372; G0378; G0379; J0702

== ENCOUNTER 2021-12-21 07:48 | Outpatient (CLI) | payer OTHER, SELFPAY ==
[2021-12-21] MEDS: BETAMETHASONE 30 MG/5 ML MDV 12 MG IM (08:16)
== END 2021-12-21 08:17 | disposition home or self-care (01) ==
LOC: OB 12-23 09:21
PROVIDERS: Referring Provider Obstetrics & Gynecology; Visit Provider Obstetrics & Gynecology
DX: O09.523 Supervision of elderly multigravida, third trimester (principal); O26.23 Pregnancy care for patient with recurrent pregnancy loss, third trimester; Z3A.29 29 weeks gestation of pregnancy
CPT/HCPCS: 96372; G0378; G0379; J0702

== ENCOUNTER → 2022-01-06 08:49 | Outpatient (CLI) | payer OTHER, SELFPAY ==
--- NOTE | 2022-01-06 08:49 | DI.US.S_ITS ---
PROCEDURE: US OB LIMITED INDICATIONS: Interval growth, LIZANDRO, cornual thickness TECHNIQUE: Real-time scanning was performed of the fetus, with image documentation. Endovaginal scanning: Not performed COMPARISON: None. FINDINGS: A single living intrauterine gestation is present. Presentation: Cephalic. Placenta: Placental position is fundal and left anterior without previa. Amniotic fluid index: 14.4 cm, normal range is 5-24 cm. Single deepest vertical pocket is 7.4 cm. heart rate: 144 beats per minute. Maternal cervical canal: 4.7 cm long. Normal lower limit is 2.5 cm. Estimated gestational age from initial scan: 32 weeks 2 days BPD 7.9 centimeters. Head circumference 29.1 centimeters. Abdominal circumference 30 centimeters. Femur length 6 centimeters. Estimated weight 2060 grams, 83rd percentile. Anterior uterine fibroid measuring 4.3 x 4.4 x 5.1 centimeters. IMPRESSION: Single living intrauterine gestation with biometric parameters as described above. Dictated by: Deon Drummond M.D. on 01/06/2022 at 10:05 Approved by: Deon Drummond M.D. on 01/06/2022 at 10:09
== END ==
PROVIDERS: Referring Provider Obstetrics & Gynecology; Visit Provider Obstetrics & Gynecology
DX: Z34.83 Encounter for supervision of other normal pregnancy, third trimester (principal); Z3A.32 32 weeks gestation of pregnancy
CPT/HCPCS: 76815

== ENCOUNTER 2022-01-26 11:34 | Outpatient (CLI) | payer OTHER, SELFPAY | END 2022-01-26 12:25 | disposition home or self-care (01) | LOC: OB 01-27 10:44 | PROVIDERS: Referring Provider Obstetrics & Gynecology; Visit Provider Obstetrics & Gynecology | DX: O09.523 Supervision of elderly multigravida, third trimester (principal); O47.03 False labor before 37 completed weeks of gestation, third trimester; Z3A.34 34 weeks gestation of pregnancy | CPT/HCPCS: 59025; G0378; G0379 ==

== ENCOUNTER 2022-02-02 09:30 | Outpatient (CLI) | payer OTHER, SELFPAY ==
--- NOTE | 2022-02-02 10:12 | PM.OBTRLD ---
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 occupational exposures/hazards: No seatbelt use: always water heater temp set < 120 deg: Yes working smoke detector in home: Yes fire extinguisher in home: Yes carbon monox detector in home: Yes firearms in home: No do you feel safe at home: Yes Smoking Status: Never smoker second hand exposure: No alcohol intake: former substance use type: does not use and marijuana (medical card) during the past year weight has: remained stable well-balanced diet: daily or most days daily servings fruits/ve-4 caffeine: Yes (200mg) Type(s) of exercise: walking and regular exercise Review of Systems Review of Systems Narrative: Problem-specific ROS positives included in HPI Exam HENMT Head: normal to inspection, normocephalic and atraumatic Eyes General: appearance normal, both eyes and all related structures Resp Effort & Inspection: normal respiratory effort and able to speak in complete sentences Auscultation: clear to auscultation bilaterally Cardio Rate: regular rate Rhythm: regular rhythm Heart Sounds: S1 normal, S2 normal and no murmurs GI Inspection: normal to inspection Palpation: soft and no hepatosplenomegaly Extrem Right lower extremity: normal to inspection Evaluation Evaluation Baseline heart rate: 145 Variability: Moderate (11-25) monitor accelerations: Present Monitor Decelerations: Absent Contraction Frequency (minutes): 5 Uterine Contraction Intensity: Mild Category of Tracing: Reactive Status: Category l Diagnosis, Plan/Disposition Final Diagnosis (1) contractions: Status: Acute (2) Size of fetus inconsistent with dates in third trimester: Status: Acute (3) History of delivery, antepartum: Status: Acute (4) Advanced maternal age (AMA) in : Status: Acute (5) : Status: Acute Plan/Disposition Plan: Continue care. Repeat section is scheduled. OB Disposition: home
== END 2022-02-02 10:19 | disposition home or self-care (01) ==
LOC: LABOR 09:40 → OB 02-04 07:28
PROVIDERS: Referring Provider Obstetrics & Gynecology; Visit Provider Obstetrics & Gynecology
DX: O09.523 Supervision of elderly multigravida, third trimester (principal); O47.03 False labor before 37 completed weeks of gestation, third trimester; O26.843 Uterine size-date discrepancy, third trimester; Z3A.35 35 weeks gestation of pregnancy
CPT/HCPCS: 59025; G0378; G0379

== ENCOUNTER → 2022-02-09 09:24 | Outpatient (CLI) | payer OTHER, SELFPAY ==
[2022-02-10 13:32] LABS: Strep Grp B PCR NEG for Grp B Strep
== END ==
PROVIDERS: Visit Provider Obstetrics & Gynecology
DX: Z34.83 Encounter for supervision of other normal pregnancy, third trimester (principal); Z3A.36 36 weeks gestation of pregnancy
CPT/HCPCS: 87653

== ENCOUNTER 2022-02-09 09:32 | Outpatient (CLI) | payer OTHER, SELFPAY ==
--- NOTE | 2022-02-09 10:34 | PM.OBTRLD ---
Visit Information Visit Information Date of evaluation: 02/09/22 Primary OB Provider: Britton Carlson Reason for Evaluation: Yes non-stress test Comments/Additional reasons for admission: AMA [facility] Medical History Dermoid cyst Ectopic Interstitial cystitis Migraines Surgical History H/O laparoscopy History of Family History Father Hypertension Grandmother Breast cancer Social History marital status: number of children: 1 household members: spouse and children lives independently: Yes housing: house pets and animals: Yes (Dog) education level: master's degree 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 occupational exposures/hazards: No seatbelt use: always water heater temp set < 120 deg: Yes working smoke detector in home: Yes fire extinguisher in home: Yes carbon monox detector in home: Yes firearms in home: No do you feel safe at home: Yes Smoking Status: Never smoker second hand exposure: No alcohol intake: former substance use type: does not use and marijuana (medical card) during the past year weight has: remained stable well-balanced diet: daily or most days daily servings fruits/ve-4 caffeine: Yes (200mg) Type(s) of exercise: walking and regular exercise Evaluation Evaluation Baseline heart rate: 125 Variability: Moderate (11-25) monitor accelerations: Present Monitor Decelerations: Absent Category of Tracing: Reactive Status: Category l Diagnosis, Plan/Disposition Final Diagnosis (1) Advanced maternal age (AMA) in : Status: Acute (2) History of delivery, antepartum: Status: Acute (3) : Status: Acute Plan/Disposition Plan: Continue routine antepartum care and weekly NSTs. Repeat section scheduled for 02/26/2022. OB Disposition: home
== END 2022-02-09 10:32 | disposition home or self-care (01) ==
LOC: LABOR 09:56 → OB 02-11 07:22
PROVIDERS: Referring Provider Obstetrics & Gynecology; Visit Provider Obstetrics & Gynecology
DX: O09.523 Supervision of elderly multigravida, third trimester (principal); O34.219 Maternal care for unspecified type scar from previous cesarean delivery; Z3A.37 37 weeks gestation of pregnancy; Z34.83 Encounter for supervision of other normal pregnancy, third trimester; Z3A.36 36 weeks gestation of pregnancy
CPT/HCPCS: 59025; 87653; G0378; G0379

== ENCOUNTER 2022-02-17 13:00 | Outpatient (CLI) | payer OTHER, SELFPAY | END 2022-02-17 13:32 | disposition home or self-care (01) | LOC: LABOR 14:37 → OB 02-18 08:14 | PROVIDERS: Referring Provider Obstetrics & Gynecology; Visit Provider Obstetrics & Gynecology | DX: O09.523 Supervision of elderly multigravida, third trimester (principal) | CPT/HCPCS: 59025; G0378; G0379 ==

== ENCOUNTER 2022-02-23 08:38 | Outpatient (CLI) | payer OTHER, SELFPAY | END 2022-02-23 09:22 | disposition home or self-care (01) | LOC: LABOR 08:40 → OB 14:13 | PROVIDERS: Referring Provider Obstetrics & Gynecology; Visit Provider Obstetrics & Gynecology | DX: O09.523 Supervision of elderly multigravida, third trimester (principal); Z3A.38 38 weeks gestation of pregnancy | CPT/HCPCS: 59025; G0378; G0379 ==

== ENCOUNTER 2022-02-26 04:07 | Inpatient (IN) | payer OTHER, SELFPAY ==
[2022-02-26] VITALS (10 sets, daily range): BP systolic 94–109; BP diastolic 35–68; PULSE 75–101; RESP 11–18; TEMP 36.2–36.6; O2SAT 10–100
--- NOTE | 2022-02-26 | PATH_ITS ---
[facility] Accession Number: [id number] . 01 Material submitted: . fallopian tube - LEFT FALLOPIAN TUBE . 01 Diagnosis: Left Fallopian Tube, Salpingectomy: Fallopian tube x1, complete cross-sections; negative for atypia or malignancy. MRV 03/03/2022 1408 Local . 01 Electronically signed: . Angela Kramer MD, Pathologist NPI- [id number] . 01 Gross description: . The specimen is received in formalin labeled with the patient's name and left fallopian tube, and consists of a single fimbriated fallopian tube measuring 10.2 cm in length and 1 cm in diameter with violaceous new serosa and no cystic structures identified. Sectioning reveals a congested stellate lumen. Visual Aid Expert fimbriae and cross-sections are submitted in cassette A1. ([id number]) /MICHAEL 03/02/20221953 Local . 01 Pathologist provided ICD-10: Z98.891, Z30.2, Z3A.39 . 01 CPT . 243567 Specimen Comment: A courtesy copy of this report has been sent to [phone] Performed at: 01 [facility] [address] [place] [address] [address] [facility], [place], [place] [id number] MD Ezequiel Plummer MD Phone: [phone]
[2022-02-26 05:30] LABS: COVID19 -Nasal RAPID Negative (Negative)
[2022-02-26 06:14] LABS: Add Manual Diff / Slide Review NO; Basophils Absolute Auto 0 /uL (0-100); Basophils Percent Auto 0.1 % (0-2); Eosinophils Absolute Auto 0 /uL (0-450); Eosinophils Percent Auto 0.4 % (2-4); Hematocrit 30.6 % (36-46); Hemoglobin 10.2 g/dL (12.0-16.0); Lymphocytes Absolute Auto 1700 /uL (1100-4500); Lymphocytes Percent Auto 24.5 % (25-40); Mean Corpuscular HGB Conc 33.2 % (30-36); Mean Corpuscular Hemoglobin 25.2 PG (26-34); Mean Corpuscular Volume 75.9 fL (80-100); Monocytes Absolute Auto 600 /uL (0-900); Neutrophils Absolute Auto 4500 /uL (1500-7000); Platelet Count 215 X10^3/uL (150-400); Red Blood Cell Count 4.03 X10^6/uL (4.0-5.2); Red Cell Distribution Width 17.3 % (11.6-14.8); White Blood Cell Count 6.8 X10^3/uL (4.5-11.0)
--- NOTE | 2022-02-26 07:17 | PM.OBHP.1 ---
OB HPI Date/Time Date of admission: 02/26/22 Date Patient Seen: 02/26/22 Time Patient Seen: 07:25 History of Present Condition Chief complaint: Repeat section : 5 Para: 1 Estimated Date of Delivery: 03/07/22 Estimated Gestational Age (weeks): 38+5 Narrative: Guerita Piper is a 36 year old admitted now at 38+ 5 weeks for repeat section due to advanced maternal age and a large fundal myoma. course has been marked by repeated episodes of lightheadedness and near-syncope as well as size greater than dates throughout the due to the presence of the myoma. In addition patient has had episodes of contractions but has never had cervical change associated with her contractions. GBS is negative. Indications Operative indications ( section): previous uterine surgery History of Present care: good care Dating criteria: LMP confirmed by 1st trimester US Ultrasounds: normal 1st trimester US and normal mid trimester US Abnormal ultrasound findings: Intramural uterine fibroid, anterior fundal Medical complications: other (Advanced maternal age) Preadmission Labs Blood type: A (+) positive -: Antibody screen: negative, GBS status: negative, HBsAG: negative, HIV: negative and RPR/VDLR: negative -: Chlamydia screen: not detected and Gonorrhea screen: not detected -: Rubella: immune and Varicella: immune HCT: 30.6 HCAB: negative PAP: Normal Cell-free DNA: Negative for trisomy 1 hr GTT: 107 Prior (ies) History: CS x 1, SAB x 3 Evaluation Evaluation Baseline heart rate: 130 Variability: Moderate (11-25) monitor accelerations: Present Monitor Decelerations: Absent Category of Tracing: Reactive PFSH Medical History Dermoid cyst Ectopic Interstitial cystitis Migraines Surgical History H/O laparoscopy History of Family History Father Hypertension Grandmother Breast cancer Social History marital status: number of children: 1 household members: spouse and children lives independently: Yes housing: house pets and animals: Yes (Dog) education level: master's degree 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 occupational exposures/hazards: No seatbelt use: always water heater temp set < 120 deg: Yes working smoke detector in home: Yes fire extinguisher in home: Yes carbon monox detector in home: Yes firearms in home: No do you feel safe at home: Yes Smoking Status: Former smoker second hand exposure: No alcohol intake: former substance use type: does not use and marijuana (medical card) during the past year weight has: remained stable well-balanced diet: daily or most days daily servings fruits/ve-4 caffeine: Yes (200mg) Type(s) of exercise: walking and regular exercise Meds Home Medications and Allergies Home Medications Medication Instructions Recorded Confirmed Type doxylamine succinate 25 mg tablet 25 mg PO BEDTIME PRN Nausea 08/05/21 02/26/22 History (Unisom (doxylamine)) prenat.vits,shahla,vla-apje-slmal 1 tab PO DAILY 08/05/21 02/26/22 History Allergies Allergy/AdvReac Type Severity Reaction Status Date / Time iodine Allergy Mild Rash Verified 02/23/22 08:19 Latex, Natural Rubber Allergy Mild Rash Verified 02/23/22 08:19 Review of Systems Review of Systems Narrative: Problem-specific ROS positives included in HPI OB Exam HENMT Head: normal to inspection, normocephalic and atraumatic Eyes General: appearance normal, both eyes and all related structures Resp Effort & Inspection: normal respiratory effort and able to speak in complete sentences Auscultation: clear to auscultation bilaterally Cardio Rate: regular rate Rhythm: regular rhythm Heart Sounds: S1 normal, S2 normal and no murmurs Extremities Lower extremity: Yes normal to inspection GI Inspection: normal to inspection Palpation: Yes soft and Yes no hepatosplenomegaly Uterus Location (Fundal Height): 40 Presentation: vertex Estimated Weight (lbs): 8 Objective Labs Labs: Laboratory Results - last 24 hr 02/26/22 04:50 SARS-CoV-2 (PCR) Negative Assessment and Plan Assessment and Plan Assessment and Plan narrative: ASSESSMENT 1. Intrauterine gestation, [place], 38+ 5 weeks gestational age 2. Advanced maternal age 3. Uterine fibroid 4. Anemia PLAN 1. Admit for repeat section 2. See admission orders
--- NOTE | 2022-02-26 07:26 | PM.PREOP ---
Pre-operative Note COVID-19 COVID-19 status: Negative Result date/Date tested (Pos, Neg/Pending): 02/26/22 Criteria for continued procedure: Non-surgical alternatives not available or appropriate per current SOC Interval Note History & Physical reviewed/Exam performed by Physician: Yes Changes to H&P: No
[2022-02-26] MEDS: CEFAZOLIN 2 GM/100 ML PREMIX 100 ML IV (07:57)
[2022-02-26] MEDS: ACETAMINOPHEN IV 1,000 MG/100 ML VIAL 400 MG IV (08:15)
--- NOTE | 2022-02-26 08:33 | SUR.OPER ---
Supine on Padded OR bed, head on pillow, safety belt at thigh, arms secured on padded arm boards at <90 degrees abduction. Bump under right buttock. Legs uncrossed with pillow under knees, gel pad to heels, tape over blanket to lower legs.
--- NOTE | 2022-02-26 09:01 | SUR.OPER ---
Viable baby boy born at 0847, attended to by OB RN & RT. Placenta and cord blood given to OB RN.
[2022-02-26] MEDS: LACTATED RINGERS 1,000 ML 100 ML IV (09:29)
--- NOTE | 2022-02-26 09:51 | P.OP_ITS ---
Operative Date/Time/Diagnoses Date of procedure: 02/26/22 Time of procedure: 08:15 Pre-op diagnosis: Intrauterine gestation, 38+ 5 weeks gestational age Prior section Prior right salpingo oophorectomy Request for sterilization Advanced maternal age Uterine fibroid Post-op diagnosis: same Procedure & Clinicians Procedure: Repeat section, low transverse cervical incision Left salpingectomy Same procedure as scheduled: Yes Indications: Guerita Piper is a 36 year old admitted now at 38+ 5 weeks for repeat section due to advanced maternal age and a large fundal myoma.? course has been marked by repeated episodes of lightheadedness and near-syncope as well as size greater than dates throughout the due to the presence of the myoma.? In addition patient has had episodes of contractions but has never had cervical change associated with her contractions.? GBS is negative. Surgeon: Britton Carlson Cylinder Block Mechanic: Darlyn Whelan Reason for Cylinder Block Mechanic: Cylinder Block Mechanic required for the safe, effective, and timely completion of this surgery. Anesthesia Type: Spinal Operative Notes Findings: Viable male BW 4349 gms. (9 lbs. 9.3 oz.), Apgars 6/7/9, delivered from the vertex presentation. The cord insertion was velamentous and the placenta itself was bilobed. A 5 cm intramural myoma was noted on the left side of the anterior fundus. The right adnexa was surgically absent. The left ovary was seen to be bilobed with the distal most lobe adherent to the posterior aspect of the fundus. The left fallopian tube was stretched due to the attachment of the distal lobe of the ovary to the posterior aspect of the uterus but otherwise the tube itself was normal. Closure Type: primary Specimen(s): cord blood Intraoperative meds administered: Ketorolac and Pitocin Applied: Catheter Estimated Blood Loss (mL): 800 Blood products transfused: none Procedure in detail: With her informed written consent, the patient was taken to the operating room and placed in the supine position for a repeat section procedure with sterilization, for the indication(s) above. The abdomen was prepped and draped in the usual manner for section and a pre-surgical timeout was taken per [facility] OR protocol. Once effective anesthesia was confirmed, a 15 cm transverse Pfannenstiel incision was made in the skin and taken down through the subcutaneous tissues to the deep fascia. The deep fascia was incised transversely, the rectus abdominal eyes bluntly and sharply, and the peritoneal cavity entered without difficulty. The lower uterine segment was visualized and the position/presentation palpated. A transverse incision at or above the vesicouterine reflection was made with Metzenbaum scissors and transverse hysterotomy performed near the midline. Amniotomy revealed clear fluid. The incision was extended bilaterally with digital traction and the infant was delivered with vacuum assist from the vertex presentation. The infant was vigorous and cord clamping delayed for 60 seconds. The placenta was delivered intact using gentle cord traction and fundal massage.The uterine cavity was then cleared of any clot/debris first with a sloppy wet lap tape followed by a dry lap tape. Ring forceps were then applied to the angles and the midline of the incised BROCK. A primary closure of the uterus was then accomplished with #1 CCGS in a running interlocking stitch followed by a 2nd layer of #1 CCGS in a running interlocking imbricating stitch. No additional sutures were required to achieve complete hemostasis. Attention was then turned to removal of the left fallopian tube for sterilization. The distal tube was grasped with a [place] clamp and elevated. Using a LigaSure device, the fimbria ovarica was coagulated and divided using the LigaSure device, the dissection was carried across the mesosalpinx to the cornua where the tube was amputated after coagulation with LigaSure device. Once pelvic hemostasis was assured, the anterior peritoneum was closed with a running 2-0 Vicryl suture and the fascia closed with #1 Vicryl in a running stitch initiated at both angles and tying separately near the midline. The subcutaneous tissues were reapproximated with 2-0 plain catgut suture using inverted interrupted stitches. The skin edges were then brought together with 4-0 Monocryl in a subcuticular closure and the incision was reinforced with 1 Steri-Strips. An appropriate compression dressing was applied and the patient transferred to PACU for recovery and subsequent transfer to the Center for recuperation. Complications: none Baby 1: Infant Gender: Male Presentation: vertex Position: Left Occiput Anterior Placental Delivery Description: Manual Removal and Abnormal Configuration (Velamentous cord insertion with bilobed placenta) Cord Vessel Description: 3 Vessels score (1 min): 6 score (5 min): 7 score (10 min): 9 weight: 9 lb 9.301 oz Post-operative Condition: stable Disposition: PACU Aftercare: routine postop
[2022-02-26] MEDS: KETOROLAC 30 MG/ML VIAL IV ×3 (11:29→23:11)
[2022-02-26] MEDS: ONDANSETRON 8 MG in SODIUM CHLORIDE 0.9% 100 ML 208 MG IV ×2 (11:39→17:27)
[2022-02-26] MEDS: ACETAMINOPHEN 325 MG TABLET 650 MG PO (16:35)
[2022-02-26] MEDS: DOCUSATE 100 MG CAPSULE 200 MG PO (20:29)
[2022-02-26] MEDS: SCOPOLAMINE 1 PATCH TOP (20:30)
[2022-02-27] MEDS: KETOROLAC 30 MG/ML VIAL IV (05:00)
[2022-02-27 07:12] LABS: Add Manual Diff / Slide Review NO; Basophils Absolute Auto 0 /uL (0-100); Basophils Percent Auto 0.2 % (0-2); Eosinophils Absolute Auto 0 /uL (0-450); Eosinophils Percent Auto 0.3 % (2-4); Hemoglobin 8.3 g/dL (12.0-16.0); Lymphocytes Absolute Auto 1200 /uL (1100-4500); Lymphocytes Percent Auto 15.3 % (25-40); Mean Corpuscular HGB Conc 33.2 % (30-36); Mean Corpuscular Hemoglobin 25.2 PG (26-34); Mean Corpuscular Volume 75.9 fL (80-100); Monocytes Absolute Auto 700 /uL (0-900); Monocytes Percent Auto 8.5 % (3-14); Neutrophils Absolute Auto 5900 /uL (1500-7000); Neutrophils Percent Auto 75.7 % (50-75); Platelet Count 203 X10^3/uL (150-400); Red Blood Cell Count 3.29 X10^6/uL (4.0-5.2); Red Cell Distribution Width 16.8 % (11.6-14.8); White Blood Cell Count 7.8 X10^3/uL (4.5-11.0)
[2022-02-27] MEDS: ACETAMINOPHEN 325 MG TABLET 650 MG PO ×3 (08:08→23:54)
[2022-02-27] MEDS: IBUPROFEN 600 MG TABLET PO ×2 (14:45→21:11)
[2022-02-27] MEDS: DOCUSATE 100 MG CAPSULE 200 MG PO (21:14)
[2022-02-28] MEDS: IBUPROFEN 600 MG TABLET PO ×2 (03:11→11:56)
[2022-02-28] MEDS: ACETAMINOPHEN 325 MG TABLET 650 MG PO (06:36)
[2022-02-28] MEDS: DOCUSATE 100 MG CAPSULE 200 MG PO (09:10)
[2022-02-28 09:14] VITALS: TEMP 37
[2022-02-28] MEDS: OXYCODONE IR 5 MG TABLET PO (09:14)
[2022-02-28] MEDS: LANOLIN OINT 7 GM 1 APPLIC TOP (09:17)
--- NOTE | 2022-02-28 10:12 | P.DS_ITS ---
Discharge Providers Provider Date of admission: 02/26/22 04:07 Discharge Date: 02/28/22 Primary care physician: Doctor Odin MD Consults: 02/26/22 11:20 Consult to Environmental Technology Professor Routine Comment: Discharge provider: Britton Carlson MD Summary Hospital Course Date Patient Seen: 02/28/22 Time Patient Seen: 10:13 Diagnoses: Intrauterine gestation, [place], 38+ 5 weeks gestational age, delivered by repeat section Request for sterilization; status post left salpingectomy Prior section Prior right salpingo oophorectomy Uterine fibroid Hospital Course: Guerita was admitted on the morning of 02/26/2022 and underwent an uneventful repeat section with left salpingectomy for sterilization. Details of the procedure well summarized on my operative note of that date. Following delivery the patient has done extremely well with prompt return of bowel and bladder function, she is ambulating independently, tolerating regular diet, and her pain is well controlled with oral pain medications. She will be discharged at this time in an afebrile normotensive condition home after counseling regarding precautionary symptoms, limitations activity, medications, and plans for follow-up which will be in 1 week. Medications at discharge will include oxycodone 5 mg 1 p.o. Q 4-6 hours as needed pain, ibuprofen 600 mg p.o. q.6 hours as needed pain, Colace 100 mg p.o. b.i.d., and vitamins with iron . Peripartum Data Infant Delivery Method: Section Laceration Description: None Episiotomy description: None complications: none 1: Gender: Female Disposition of : home Status at Discharge Cognitive/behavioral status at discharge: oriented Functional status at discharge: independent ambulation Overall status at discharge: patient is progressing back to baseline Time Spent with Patient Time attestation: Total time spent providing and/or coordinating discharge services: Time spent: Less than 30 minutes Objective Labs Result Diagrams: 02/27/22 07:00 Exam Vital Signs (past 8 hours): - 02/28/22 09:14 Temperature 98.6 F Const General: cooperative and comfortable Nutritional Appearance: average body habitus Orientation: alert and oriented x3 HENMT Head: normal to inspection, atraumatic and abrasion Ears: hearing grossly normal bilaterally Face and sinus: face symmetric Eyes General: appearance normal, both eyes and all related structures Conjunctivae: conjunctivae normal Sclera: sclerae normal EOM: EOM intact bilaterally Neck Neck: normal visual inspection Resp Effort & Inspection: normal respiratory effort and able to speak in complete sentences Auscultation: clear to auscultation bilaterally Cardio Rate: regular rate Rhythm: regular rhythm Heart Sounds: S1 normal, S2 normal and no murmurs GI Inspection: normal to inspection and incision (Incision clean, dry, intact; compression dressing removed, AquaCel applied) Palpation: soft, no hepatosplenomegaly, mass (Firm, mildly tender findus, U-2) and tender (Mild, diffuse postsurgical tenderness) External Female Exam: other (No significant bleeding noted) Extrem General: no calf tenderness Psych Appearance: grossly normal Mental Status: mental status grossly normal Speech and Movement: speech and movement normal Mood: congruent mood Affect: normal affect Attitude: cooperative Thought Process: normal Thought Content: normal Judgment: judgment good Discharge Plan Discharge Plan Patient Disposition: Home Provider Discharge Comment: Please review the written instructions you received when you were discharged from the hospital. Your follow-up appointment will be 1 week following her delivery and I look forward to seeing you then. If however in the meanwhile you have any issues, concerns, or problems, please contact me either through the office phone at [phone] or via the patient portal. Discharge orders & Medications Prescriptions: New docusate sodium 100 mg Capsule 200 mg PO BID 15 Days Qty: 60 2RF ibuprofen 600 mg Tablet 600 mg PO Q6H PRN (Reason: Fever/Mild Pain (1-3)) Qty: 60 0RF oxycodone 5 mg Tablet 5 mg PO Q4H PRN (Reason: Pain, Moderate (4-6)) Qty: 20 0RF Continued prenat.vits,shahla,dey-vays-mvzvq Tablet 1 tab PO DAILY Discontinued Unisom (doxylamine) 25 mg tablet 25 mg PO BEDTIME PRN (Reason: Nausea) Follow up/Referrals: Miscellaneous,DoctorMD [Primary Care Provider] - Britton Carlson MD [Physician] - (Follow up appt for incision check on 03/05/2022 @[id number] Carlson [address] Carlson on 04/13/2022 @ 0830am For any questions please call [phone]) Discharge Health Status Multidrug resistant organism: No MDRO Diet/Activity/Treatments Diet: Diet as Tolerated Activity: As tolerated Other treatments: Zkoh-mfs-awnmfrm Tylenol may be taken in addition to ibuprofen and oxycodone for pain relief Skin/Wound/Dressing Care Report to your healthcare provider any signs of infection, such as:: chills, fever, increased pain, unusual drainage and unusual redness Visit Report/Discharge Packet Instructions: DI for , DI for Depression, DI for and Nipple Soreness, DI for Prescription Opioid Use Discharge Data Primary Care Provider: Miscellaneous,Doctor
[2022-02-28 10:41] VITALS: BP 100/59; PULSE 101; RESP 16; TEMP 37
[2022-02-28 11:56] VITALS: TEMP 37.2
== END 2022-02-28 12:05 | disposition home or self-care (01) | DRG 785 ==
PROVIDERS: Admitting Provider Obstetrics & Gynecology; Referring Provider Obstetrics & Gynecology; Visit Provider Obstetrics & Gynecology
PROC: 10D00Z1 Extraction of Products of Conception, Low, Open Approach (ICD-10-PCS; CPT 59514; principal; 2022-02-26 07:45)
DX: O34.211 Maternal care for low transverse scar from previous cesarean delivery (principal); Z3A.38 38 weeks gestation of pregnancy; Z37.0 Single live birth; O34.13 Maternal care for benign tumor of corpus uteri, third trimester; D25.1 Intramural leiomyoma of uterus; O99.02 Anemia complicating childbirth; Z30.2 Encounter for sterilization; Z20.822 Contact with and (suspected) exposure to COVID-19
CPT/HCPCS: 36415; 58611; 59050; 59510; 59514; 85025; 86850; 86900; 86901; 87635; C9803; G0379; J0131; J0690; J1885; J2274; J2405; J2590

== ENCOUNTER → 2022-05-04 15:06 | Outpatient (CLI) | payer OTHER, SELFPAY ==
--- NOTE | 2022-05-04 15:07 | DI.RAD.S_ITS ---
PROCEDURE: XR HIP W PEL IF DONE GAB MIN 4V INDICATIONS: bilateral hip/leg pain TECHNIQUE: AP pelvis with lateral view(s) of the right and left hip(s). COMPARISON: None. FINDINGS: Bones: No fractures or dislocations. Pelvic ring appears intact. No suspicious bony lesions. Soft tissues: The visualized bowel gas pattern is normal. No suspicious soft tissue calcifications. IMPRESSION: No fracture. No osseous lesion. If symptoms and/or clinical suspicion for pathology persists, further assessment with repeat radiographs (7-10 days) or advanced imaging (e.g. CT, MRI or bone scan) should be considered. Dictated by: Tiffanie Gilbert MD, PhD on 05/04/2022 at 15:28 Approved by: Tiffanie Gilbert MD, PhD on 05/04/2022 at 15:28
== END ==
PROVIDERS: PCP Family Medicine; Referring Provider Family Medicine; Visit Provider Family Medicine
DX: M25.551 Pain in right hip (principal); M25.552 Pain in left hip
CPT/HCPCS: 73522

== ENCOUNTER → 2023-01-21 07:54 | Outpatient (CLI) | payer OTHER, SELFPAY ==
--- NOTE | 2023-01-21 07:55 | DI.US.S_ITS ---
PROCEDURE: US PELVIC COMPLETE INDICATIONS: Fibroids TECHNIQUE: Real-time scanning was performed of the pelvic organs, with image documentation. Additional endovaginal scanning was necessary due to incomplete visualization of the adnexal and endometrial structures by transabdominal scanning. COMPARISON: None. FINDINGS: Uterus: Uterus is anteverted and normal in size at 8.1 x 7.2 x 3.6 cm. Left anterior subserosal fibroid measuring 40 mm (previously 51 mm). The endometrium measures 6.6 mm combined thickness. Ovaries: Right ovary is not seen. Left ovary measures 44 mm x 15 mm x 18 mm, with a volume of 6.2 cc. Less than 12 follicular cysts are present. Other: No pathologic free abdominal or pelvic fluid. IMPRESSION: 1. Decreased uterine fibroid. 2. Nonvisualization of the right ovary. We strive to produce accurate, complete, and clear reports of imaging services. To assist us in improving patient care, this report was composed using standard report templates and voice recognition software. Therefore, it may contain abnormal punctuation, insertions and/or omissions. Occasional wrong-word or sound-alike substitutions may occur. Though we review the report and make efforts to correct it, we do recommend that the report be read carefully in proper context to recognize any text inaccuracies. Dictated by: Briseida Montes M.D. on 01/21/2023 at 13:55 Approved by: Briseida Montes M.D. on 01/21/2023 at 13:57
== END ==
PROVIDERS: PCP Family Medicine; Referring Provider Obstetrics & Gynecology; Visit Provider Obstetrics & Gynecology
DX: D25.2 Subserosal leiomyoma of uterus
CPT/HCPCS: 76830; 76856

== ENCOUNTER → 2023-09-08 15:34 | Outpatient (CLI) | payer OTHER, SELFPAY ==
--- NOTE | 2023-09-08 15:35 | DI.US.S_ITS ---
PROCEDURE: US PELVIC COMPLETE INDICATIONS: Fibroids TECHNIQUE: Real-time scanning was performed of the pelvic organs, with image documentation. Additional endovaginal scanning was necessary due to incomplete visualization of the adnexal and endometrial structures by transabdominal scanning. COMPARISON: [facility], , US PELVIC COMPLETE, 01/21/2023, 9:05. FINDINGS: Uterus: Uterus is anteverted and normal in size at 8.6 x 6.9 x 6.1 cm. The myometrium is homogeneous. The endometrium measures 8 mm combined thickness. There is a subserosal fibroid in the left anterior uterus measuring 4.4 x 3.9 x 4.1 cm, previously measuring 4.0 x 4.0 x 3.8 cm on 01/21/2023. Ovaries: Status post right oophorectomy. The left ovary measures 4.0 x 2.0 x 1.5 cm, with a calculated ovarian volume of 6.3 cc. The left ovary has a normal sonographic appearance. Less than 12 follicles can be seen in the left ovary. No adnexal masses are seen. There is a dominant left ovarian follicle measuring 1.4 x 1.1 x 1.1 cm Other: No pathologic free abdominal or pelvic fluid. IMPRESSION: Slightly increased size of subserosal uterine fibroid measuring up to 4.4 cm. Approved by: Loraine Loera M.D.,Ph.D. on 09/08/2023 at 21:57
== END ==
PROVIDERS: PCP Family Medicine; Referring Provider Obstetrics & Gynecology; Visit Provider Obstetrics & Gynecology
DX: D25.2 Subserosal leiomyoma of uterus (principal); D25.1 Intramural leiomyoma of uterus; R10.2 Pelvic and perineal pain; G89.29 Other chronic pain; Z90.721 Acquired absence of ovaries, unilateral
CPT/HCPCS: 76856